=== PATIENT | female | born 1990 | race Caucasian/White ===

== ENCOUNTER 2022-05-23 20:06 | Emergency (ER) | payer BC ==
[~2022-05-23] VITALS: Ht 177.8 cm; Wt 82.6 kg
[2022-05-23] MEDS ORDERED: NP THYROID15 MG (20:22)
== END 2022-05-23 22:48 | disposition home or self-care (01) ==
LOC: ER 20:06
DX: J32.9 Chronic sinusitis, unspecified (principal)